=== PATIENT | female | born 1985 | race Caucasian/White ===

== ENCOUNTER 2022-12-13 09:25 | Day surgery (SDC) | payer BC ==
[2022-12-10 11:14] VITALS: BMI 43.5
[2022-12-13] MEDS ORDERED: FENTANYL 50 MCG/ML 1 ML VIAL ONE ×2 (15:16→15:40)
[2022-12-13] MEDS ORDERED: Metoprolol Tartrate 5 MG/5 ML VIAL ONE (15:21)
== END 2022-12-13 16:54 | disposition home or self-care (01) ==
LOC: MRI 09:25 → EDSTATUS 12:00 → MRI 16:54
PROVIDERS: ATTEND Neurological Surgery
DX: G93.5 Compression of brain (principal); F40.240 Claustrophobia; I10 Essential (primary) hypertension; G89.29 Other chronic pain; E66.01 Morbid (severe) obesity due to excess calories; Z68.41 Body mass index [BMI] 40.0-44.9, adult; Z86.16 Personal history of COVID-19; Z88.6 Allergy status to analgesic agent; Z88.8 Allergy status to other drugs, medicaments and biological substances; Z91.041 Radiographic dye allergy status; Z87.891 Personal history of nicotine dependence; Z91.013 Allergy to seafood; Z79.899 Other long term (current) drug therapy
CPT/HCPCS: 70544; 70553; 72141; J3010

== ENCOUNTER 2022-12-31 10:55 | Day surgery (SDC) | payer BC ==
[2022-12-29 14:13] VITALS: BMI 46.5
[2022-12-31] MEDS ORDERED: Magnevist 469MG/ML 20 ML VIAL ONE (11:38)
== END 2022-12-31 12:10 | disposition home or self-care (01) ==
LOC: MRI 10:55
PROVIDERS: ATTEND Neurological Surgery
DX: M51.26 Other intervertebral disc displacement, lumbar region (principal); M47.816 Spondylosis without myelopathy or radiculopathy, lumbar region; M48.061 Spinal stenosis, lumbar region without neurogenic claudication; M51.37 Other intervertebral disc degeneration, lumbosacral region; M47.817 Spondylosis without myelopathy or radiculopathy, lumbosacral region; Z79.899 Other long term (current) drug therapy; Z88.6 Allergy status to analgesic agent; Z88.8 Allergy status to other drugs, medicaments and biological substances; Z91.013 Allergy to seafood; Z91.041 Radiographic dye allergy status
CPT/HCPCS: 72158; A9579

== ENCOUNTER 2023-03-03 09:24 | Outpatient (CLI) | payer BC ==
[2023-03-03 10:17] LABS: Hemoglobin 12.9 g/dL (12.0-15.5); Mean Corpuscular HGB CONC 32.1 g/dL (32.0-36.0); Mean Corpuscular Hemoglobin 29.7 pg (27.0-33.0); Mean Corpuscular Volume 92.6 fl (81.6-98.3); Mean Platelet Volume 9.1 fl (7.4-10.4); Platelet Count 326 10x3/uL (150-450); RBC Distribution Width 12.4 % (11.5-14.5); Red Blood Cell (RBC) Count 4.34 10x6/uL (3.90-5.03); White Blood Cell (WBC) Count 5.9 10x3/uL (3.5-10.5)
[2023-03-03 10:25] LABS: BHCG - Serum Negative (NEGATIVE); Pregs Control Background? CLEAR/WHITE (CLR/WHITE); Pregs Control Bar Appear? YES (CONTROL BAR)
[2023-03-03 10:28] LABS: INR-International Normal Ratio 0.9; PTT 24.7 sec (22.0-33.0); Prothrombin Time 10.1 sec (9.5-12.1)
== END 2023-03-03 09:25 | disposition home or self-care (01) ==
LOC: LABBT 09:24
PROVIDERS: ATTEND Neurological Surgery
DX: Z01.812 Encounter for preprocedural laboratory examination (principal); G93.5 Compression of brain
CPT/HCPCS: 84703; 85027; 85610; 85730

== ENCOUNTER 2023-04-08 09:31 | Inpatient (IN) | payer BC ==
[2023-04-08] MEDS ORDERED: LORazepam 2 MG/ML SYR.(CARPUJECT) ONE (11:07)
[2023-04-08] MEDS ORDERED: Lidocaine 1% w/Epinephrine 1:100K 20 ML VIAL ONE (11:07)
[2023-04-08] MEDS ORDERED: Lidocaine 1% MPF 2 ML VIAL ONE (11:08)
[2023-04-08] MEDS ORDERED: Lidocaine 1% (PF) 30 ML VIAL ONE (11:11)
[2023-04-08] MEDS ORDERED: Prochlorperazine 10 MG/2 ML VIAL IM PRN (11:50)
[2023-04-08] MEDS ORDERED: Ondansetron PF 4 MG/2 ML Vial IVP PRN (11:50)
[2023-04-08] MEDS ORDERED: Promethazine HCl 12.5 MG SUPP PR PRN (11:50)
[2023-04-08 12:48] LABS: #Monocytes 0.4 thou/uL (0.11-0.59); #Neutrophils 6.2 thou/uL (1.40-6.50); %Basophils 0.3 % (0.0-1.0); %Eosinophils 0.3 % (0.0-10.0); %Monocytes 4.8 % (0.0-10.0); %Neutrophils 80.2 % (42.0-75.0); Mean Corpuscular HGB CONC 32.8 g/dL (32.0-36.0); Mean Corpuscular Hemoglobin 30.8 pg (27.0-31.0); Mean Corpuscular Volume 94.1 fl (78.0-98.0); Mean Platelet Volume 9.3 fL (7.4-10.4); Platelet Count 253 10x3/uL (130-400); RBC Distribution Width 12.4 % (11.5-14.5); Red Blood Cell (RBC) Count 3.89 mill/uL (4.20-5.40); White Blood Cell (WBC) Count 7.7 10x3/uL (4.8-10.8)
[2023-04-08 13:09] LABS: PTT 26.6 sec (22.9-36.1); Prothrombin Time 13.4 sec (12.0-14.7)
[2023-04-08 13:16] LABS: Anion Gap 12 mmol/L (10-20); BUN (Urea Nitrogen) 11 mg/dL (7.0-18.7); Calc. Creatinine Clearance 0 mL/min (70-130); Carbon Dioxide 29 mmol/L (22-29); Chloride 98 mmol/L (98-107); Estimated GFR 91; Glucose 103 mg/dL (70-105); Potassium 3.9 mmol/L (3.5-5.1); Sodium 135 mmol/L (136-145)
[2023-04-08] MEDS ORDERED: Lorazepam 2 MG/ML VIAL SLOW IVP PRN (13:38)
[2023-04-08] MEDS ORDERED: Lorazepam 2 MG/ML VIAL ONE (13:38)
[2023-04-08] MEDS ORDERED: Xylocaine 1% w/ Epi 1:100K 10 ML VIAL ONE (13:39)
[2023-04-08] MEDS ORDERED: Lidocaine 1% w/Epinephrine 1:100K 20 ML VIAL IJ SCH (13:45)
[2023-04-08 13:52] VITALS: BMI 43.8
[2023-04-08] MEDS: Sodium Chloride 0.9% 1,000 ML IV SCH (15:30)
[2023-04-08] MEDS: CEFAZOLIN 2 GM in Sodium Chloride 0.9% 100 ML IVPB SCH ×2 (15:30→22:36)
[2023-04-08] MEDS: Acetaminophen 325 MG TAB PO PRN (15:35)
[2023-04-08] MEDS: HYDROcodone/Acetaminophen 10/325 mg Tablet PO PRN (18:30)
[2023-04-08] MEDS: Atenolol 50 MG TAB PO SCH (20:35)
[2023-04-09] MEDS: HYDROcodone/Acetaminophen 10/325 mg Tablet PO PRN ×3 (00:07→18:57)
[2023-04-09] MEDS: Sodium Chloride 0.9% 1,000 ML IV SCH ×2 (00:08→15:47)
[2023-04-09] MEDS: CEFAZOLIN 2 GM in Sodium Chloride 0.9% 100 ML IVPB SCH ×3 (06:07→23:36)
[2023-04-09] MEDS: METHadone HCl 10 MG TAB PO SCH (09:53)
[2023-04-09] MEDS: Venlafaxine HCl XR 150 MG CAP PO SCH (09:53)
[2023-04-09] MEDS: Losartan 25 MG TAB PO SCH (12:35)
[2023-04-09] MEDS: Acetaminophen 325 MG TAB PO PRN ×2 (15:31→20:15)
[2023-04-09] MEDS: Atenolol 50 MG TAB PO SCH (20:06)
[2023-04-09] MEDS: Baclofen 10 MG TAB PO PRN (23:36)
[2023-04-10] MEDS: HYDROcodone/Acetaminophen 10/325 mg Tablet PO PRN ×4 (01:59→23:26)
[2023-04-10] MEDS: Acetaminophen 325 MG TAB PO PRN ×2 (05:45→15:29)
[2023-04-10] MEDS: CEFAZOLIN 2 GM in Sodium Chloride 0.9% 100 ML IVPB SCH ×3 (05:46→23:10)
[2023-04-10] MEDS: Sodium Chloride 0.9% 1,000 ML IV SCH ×2 (05:46→17:39)
[2023-04-10] MEDS: Venlafaxine HCl XR 150 MG CAP PO SCH (09:04)
[2023-04-10] MEDS: METHadone HCl 10 MG TAB PO SCH (09:04)
[2023-04-10] MEDS: Losartan 25 MG TAB PO SCH (09:07)
[2023-04-10] MEDS ORDERED: Meclizine HCl 25 MG TAB PO PRN (14:24)
[2023-04-10] MEDS: Acetaminophen/Codeine 30-300mg Tablet PO PRN ×2 (16:41→20:28)
[2023-04-10] MEDS: Atenolol 50 MG TAB PO SCH (20:25)
[2023-04-10] MEDS: Baclofen 10 MG TAB PO PRN (20:30)
[2023-04-11] MEDS: Acetaminophen/Codeine 30-300mg Tablet PO PRN ×4 (03:42→20:54)
[2023-04-11] MEDS: HYDROcodone/Acetaminophen 10/325 mg Tablet PO PRN ×4 (04:40→22:45)
[2023-04-11] MEDS: CEFAZOLIN 2 GM in Sodium Chloride 0.9% 100 ML IVPB SCH ×4 (05:50→22:00)
[2023-04-11] MEDS: Sodium Chloride 0.9% 1,000 ML IV SCH (08:57)
[2023-04-11] MEDS: Venlafaxine HCl XR 150 MG CAP PO SCH (09:23)
[2023-04-11] MEDS: METHadone HCl 10 MG TAB PO SCH (09:24)
[2023-04-11] MEDS: Losartan 25 MG TAB PO SCH (09:25)
[2023-04-11] MEDS: Atenolol 50 MG TAB PO SCH (20:55)
[2023-04-11] MEDS: Promethazine HCl 12.5 MG in Sodium Chloride 0.9% 50 ML IVPB PRN (20:56)
[2023-04-11] MEDS: Baclofen 10 MG TAB PO PRN (22:05)
[2023-04-12] MEDS: Sodium Chloride 0.9% 1,000 ML IV SCH ×2 (00:06→12:02)
[2023-04-12] MEDS: Acetaminophen/Codeine 30-300mg Tablet PO PRN ×2 (02:13→21:13)
[2023-04-12 06:04] LABS: #Eosinphils 0.1 thou/uL (0.0-0.7); #Monocytes 0.5 thou/uL (0.11-0.59); #Neutrophils 3.6 thou/uL (1.40-6.50); %Basophils 0.5 % (0.0-1.0); %Eosinophils 2.2 % (0.0-10.0); %Lymphocytes 22.9 % (21.0-51.0); %Monocytes 8.2 % (0.0-10.0); %Neutrophils 65.8 % (42.0-75.0); Hemoglobin 11.3 g/dL (12.0-16.0); Mean Corpuscular HGB CONC 32.1 g/dL (32.0-36.0); Mean Corpuscular Hemoglobin 30.4 pg (27.0-31.0); Mean Corpuscular Volume 94.6 fl (78.0-98.0); Mean Platelet Volume 8.8 fL (7.4-10.4); Platelet Count 267 10x3/uL (130-400); RBC Distribution Width 12.2 % (11.5-14.5); Red Blood Cell (RBC) Count 3.72 mill/uL (4.20-5.40); White Blood Cell (WBC) Count 5.5 10x3/uL (4.8-10.8)
[2023-04-12] MEDS: CEFAZOLIN 2 GM in Sodium Chloride 0.9% 100 ML IVPB SCH ×3 (06:14→21:13)
[2023-04-12] MEDS: METHadone HCl 10 MG TAB PO SCH (06:40)
[2023-04-12] MEDS ORDERED: Midazolam HCl 2 mg/2 ml Vial ONE (07:28)
[2023-04-12] MEDS ORDERED: Dexmedetomidine 200 MCG/2 ML VIAL ONE (07:34)
[2023-04-12] MEDS ORDERED: Ketamine 50 MG/ML (10ML VIAL) ONE (07:34)
[2023-04-12] MEDS ORDERED: Fentanyl 250 MCG/5 ML VIAL ONE (07:34)
[2023-04-12] MEDS ORDERED: Ondansetron PF 4 MG/2 ML Vial ONE (07:43)
[2023-04-12] MEDS ORDERED: Rocuronium Bromide 10 MG/ML (10ML VIAL) ONE (07:43)
[2023-04-12] MEDS ORDERED: Albuterol HFA (OR) 200 PUFF INH ONE (07:43)
[2023-04-12] MEDS ORDERED: Dexamethasone 20 MG/5 ML VIAL ONE (07:43)
[2023-04-12] MEDS ORDERED: Lidocaine 1% PF 5 ML VIAL ONE (07:43)
[2023-04-12] MEDS ORDERED: PROPOFOL 200 MG/20 ML VIAL ONE (07:43)
[2023-04-12] MEDS ORDERED: Vancomycin 1 GM VIAL ONE (07:46)
[2023-04-12] MEDS ORDERED: Bupivacaine HCl 0.5%/Epinephrine 1:200,000/PF 30 ml Vial ONE (07:46)
[2023-04-12] MEDS ORDERED: Thrombin 5000 UNITS/5 ML VIAL ONE (07:46)
[2023-04-12] MEDS ORDERED: SUGAMMADEX SODIUM 200 MG/2 ML VIAL ONE ×2 (10:21→10:22)
[2023-04-12] MEDS ORDERED: Ondansetron HCl/PF 4 MG/2 ML Vial IVP PRN (10:56)
[2023-04-12] MEDS ORDERED: HYDROmorphone 2 MG/ML VIAL SLOW IVP PRN (10:56)
[2023-04-12] MEDS ORDERED: Promethazine HCl 25 MG/ML VIAL IM PRN (10:56)
[2023-04-12] MEDS ORDERED: HYDROmorphone 0.5 MG/0.5 ML SYRINGE ONE ×2 (11:17→11:29)
[2023-04-12] MEDS ORDERED: hydrALAZINE 20 MG/ML VIAL ONE (11:29)
[2023-04-12] MEDS: HYDROcodone/Acetaminophen 10/325 mg Tablet PO PRN ×3 (12:08→22:34)
[2023-04-12] MEDS: Losartan 25 MG TAB PO SCH (12:09)
[2023-04-12] MEDS: Venlafaxine HCl XR 150 MG CAP PO SCH (12:09)
[2023-04-12] MEDS ORDERED: CEFAZOLIN 2 GM in Sodium Chloride 0.9% 100 ML IVPB SCH (12:45)
[2023-04-12] MEDS: hydrALAZINE 20 MG/ML VIAL SLOW IVP PRN (13:07)
[2023-04-12] MEDS: Atenolol 50 MG TAB PO SCH (21:12)
[2023-04-12] MEDS: Baclofen 10 MG TAB PO PRN (21:13)
[2023-04-12] MEDS: Promethazine HCl 12.5 MG in Sodium Chloride 0.9% 50 ML IVPB PRN (22:10)
[2023-04-13] MEDS: Sodium Chloride 0.9% 1,000 ML IV SCH ×2 (00:34→12:01)
[2023-04-13] MEDS: Acetaminophen/Codeine 30-300mg Tablet PO PRN ×4 (02:10→22:00)
[2023-04-13] MEDS: HYDROcodone/Acetaminophen 10/325 mg Tablet PO PRN ×3 (04:06→18:45)
[2023-04-13] MEDS: Promethazine HCl 12.5 MG in Sodium Chloride 0.9% 50 ML IVPB PRN (04:08)
[2023-04-13] MEDS: VANCOMYCIN 2 GRAM/500 ML BAG 2 GM in Premix Bag 1 BAG IVPB SCH ×2 (06:23→18:46)
[2023-04-13] MEDS ORDERED: VANCOMYCIN 1.25 GM/250 ML BAG 1.25 GM in Premix Bag 1 BAG IVPB SCH (09:00)
[2023-04-13] MEDS: Losartan 25 MG TAB PO SCH (09:29)
[2023-04-13] MEDS: Venlafaxine HCl XR 150 MG CAP PO SCH (09:29)
[2023-04-13] MEDS: METHadone HCl 10 MG TAB PO SCH (09:42)
[2023-04-13] MEDS: hydrALAZINE 20 MG/ML VIAL SLOW IVP PRN ×2 (16:24→20:04)
[2023-04-13] MEDS: Atenolol 50 MG TAB PO SCH (20:02)
[2023-04-13] MEDS: Docusate 100 MG CAP PO PRN (20:05)
[2023-04-13] MEDS: Baclofen 10 MG TAB PO PRN (20:05)
[2023-04-14] MEDS: hydrALAZINE 20 MG/ML VIAL SLOW IVP PRN ×4 (00:09→06:07)
[2023-04-14] MEDS: Sodium Chloride 0.9% 1,000 ML IV SCH ×2 (00:42→14:37)
[2023-04-14] MEDS: HYDROcodone/Acetaminophen 10/325 mg Tablet PO PRN ×3 (01:05→20:29)
[2023-04-14] MEDS: Acetaminophen/Codeine 30-300mg Tablet PO PRN ×2 (04:05→17:09)
[2023-04-14] MEDS: VANCOMYCIN 2 GRAM/500 ML BAG 2 GM in Premix Bag 1 BAG IVPB SCH ×2 (05:35→17:59)
[2023-04-14] MEDS ORDERED: Labetalol HCl 100 MG/20 ML VIAL SLOW IVP PRN (06:34)
[2023-04-14] MEDS: METHadone HCl 10 MG TAB PO SCH (08:39)
[2023-04-14] MEDS: Venlafaxine HCl XR 150 MG CAP PO SCH (08:39)
[2023-04-14] MEDS: Losartan 25 MG TAB PO SCH (09:35)
[2023-04-14 17:24] LABS: Vancomycin, Trough 14.5 ug/mL
[2023-04-14] MEDS: Docusate 100 MG CAP PO PRN (18:24)
[2023-04-14] MEDS: Baclofen 10 MG TAB PO PRN (20:29)
[2023-04-14] MEDS: Atenolol 50 MG TAB PO SCH (20:38)
[2023-04-15] MEDS: Acetaminophen/Codeine 30-300mg Tablet PO PRN ×2 (00:20→20:51)
[2023-04-15] MEDS: Sodium Chloride 0.9% 1,000 ML IV SCH ×2 (03:40→08:14)
[2023-04-15] MEDS: HYDROcodone/Acetaminophen 10/325 mg Tablet PO PRN ×3 (04:33→22:52)
[2023-04-15] MEDS: VANCOMYCIN 2 GRAM/500 ML BAG 2 GM in Premix Bag 1 BAG IVPB SCH ×2 (06:18→18:11)
[2023-04-15 07:29] LABS: #Eosinphils 0.2 thou/uL (0.0-0.7); #Monocytes 0.4 thou/uL (0.11-0.59); #Neutrophils 3.4 thou/uL (1.40-6.50); %Basophils 0.8 % (0.0-1.0); %Eosinophils 3.6 % (0.0-10.0); %Lymphocytes 24.8 % (21.0-51.0); Hemoglobin 12.5 g/dL (12.0-16.0); Mean Corpuscular HGB CONC 32.5 g/dL (32.0-36.0); Mean Corpuscular Volume 92.5 fl (78.0-98.0); Mean Platelet Volume 8.6 fL (7.4-10.4); Platelet Count 278 10x3/uL (130-400); RBC Distribution Width 12.5 % (11.5-14.5); Red Blood Cell (RBC) Count 4.16 mill/uL (4.20-5.40); White Blood Cell (WBC) Count 5.3 10x3/uL (4.8-10.8)
[2023-04-15 07:51] LABS: Anion Gap 13 mmol/L (10-20); BUN (Urea Nitrogen) 8 mg/dL (7.0-18.7); Calc. Creatinine Clearance 227 mL/min (70-130); Calcium 8.7 mg/dL (7.8-10.44); Carbon Dioxide 25 mmol/L (22-29); Chloride 102 mmol/L (98-107); Estimated GFR 114; Glucose 88 mg/dL (70-105); Potassium 3.3 mmol/L (3.5-5.1); Sodium 137 mmol/L (136-145)
[2023-04-15] MEDS: METHadone HCl 10 MG TAB PO SCH (09:32)
[2023-04-15] MEDS: Polyethylene Glycol 3350 17 GM Packet PO PRN (09:33)
[2023-04-15] MEDS: Venlafaxine HCl XR 150 MG CAP PO SCH (09:33)
[2023-04-15] MEDS: Docusate 100 MG CAP PO PRN ×2 (09:33→20:51)
[2023-04-15] MEDS: Losartan 25 MG TAB PO SCH (09:56)
[2023-04-15] MEDS: hydrALAZINE 20 MG/ML VIAL SLOW IVP PRN (18:12)
[2023-04-15] MEDS ORDERED: Lidocaine 1% (PF) 30 ML VIAL ONE (18:24)
[2023-04-15] MEDS: Atenolol 50 MG TAB PO SCH (20:51)
[2023-04-15] MEDS: Baclofen 10 MG TAB PO PRN (20:51)
[2023-04-16] MEDS: Acetaminophen/Codeine 30-300mg Tablet PO PRN ×3 (02:18→23:36)
[2023-04-16] MEDS: HYDROcodone/Acetaminophen 10/325 mg Tablet PO PRN ×2 (05:15→14:54)
[2023-04-16] MEDS: Sodium Chloride 0.9% 1,000 ML IV SCH ×2 (05:20→23:43)
[2023-04-16] MEDS: Polyethylene Glycol 3350 17 GM Packet PO PRN (08:59)
[2023-04-16] MEDS: METHadone HCl 10 MG TAB PO SCH (08:59)
[2023-04-16] MEDS: VANCOMYCIN 2 GRAM/500 ML BAG 2 GM in Premix Bag 1 BAG IVPB SCH ×2 (08:59→19:26)
[2023-04-16] MEDS: hydrALAZINE 20 MG/ML VIAL SLOW IVP PRN (09:00)
[2023-04-16] MEDS: Docusate 100 MG CAP PO PRN (09:01)
[2023-04-16] MEDS: Venlafaxine HCl XR 150 MG CAP PO SCH (09:01)
[2023-04-16] MEDS: Losartan 25 MG TAB PO SCH (09:42)
[2023-04-16] MEDS: Atenolol 50 MG TAB PO SCH (20:15)
[2023-04-16] MEDS ORDERED: Famotidine 20 MG TAB PO SCH (21:00)
[2023-04-17 00:51] VITALS: TEMP 98.2
[2023-04-17] MEDS: Acetaminophen 325 MG TAB PO PRN (03:52)
[2023-04-17] MEDS: VANCOMYCIN 2 GRAM/500 ML BAG 2 GM in Premix Bag 1 BAG IVPB SCH (05:06)
[2023-04-17 07:40] VITALS: BP 145/97
== END 2023-04-17 07:47 | disposition home or self-care (01) | DRG 27 ==
LOC: ERS 09:31 → SURG A 11:47 → IMCU/EMU 04-09 → SURG A 04-16 16:28
PROVIDERS: ADMIT Neurological Surgery; ATTEND Neurological Surgery
PROC: 009U3ZZ Drainage of Spinal Canal, Percutaneous Approach (ICD-10-PCS; 2023-04-08)
PROC: B01B1ZZ Fluoroscopy of Spinal Cord using Low Osmolar Contrast (ICD-10-PCS; 2023-04-08)
PROC: 00J Central Nervous System and Cranial Nerves, Inspection (ICD-10-PCS; principal; 2023-04-12)
DX: G96.08 Other cranial cerebrospinal fluid leak (principal); I10 Essential (primary) hypertension; F32.A Depression, unspecified; F41.9 Anxiety disorder, unspecified; G43.909 Migraine, unspecified, not intractable, without status migrainosus; J45.909 Unspecified asthma, uncomplicated; Z91.013 Allergy to seafood; Z88.8 Allergy status to other drugs, medicaments and biological substances; Z88.6 Allergy status to analgesic agent; Z87.891 Personal history of nicotine dependence
CPT/HCPCS: 36415; 62270; 80048; 80202; 85025; 85610; 85730; 87070; 87205; 93970; 96374; C1889; J0360; J1100; J1170; J2001; J2060; J2250; J2405; J2550; J2704; J3010; J3370; J3490; J7050